=== PATIENT | male | born 1995 | race Caucasian/White ===

== ENCOUNTER 2018-08-11 20:04 | Emergency (ER) | payer SELFPAY ==
[2018-08-11] MEDS ORDERED: LIDOCAINE 1% INJ-PF (10 MG/ML) 30 ML SDV INJ ONE (22:22)
[2018-08-11] MEDS ORDERED: ONDANSETRON 4 MG TAB.RAPDIS PO ONE (22:22)
[2018-08-11] MEDS ORDERED: OXYCODONE-ACETAMINOPHEN 5-325 MG TABLET PO ONE (22:22)
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
[2018-08-11] MEDS ORDERED: TETRACAINE HCL 0.5% OPH SOLN 0.6 ML DROPERETTE OU ONE (23:12)
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
[2018-08-11] MEDS ORDERED: TETRACAINE HCL 0.5% OPH SOLN 4 ML ONE (23:29)
--- NOTE | 2018-08-11 23:53 | RADIOLOGY REPORT (SQ) ---
CLINICAL HISTORY: right eye injury painful eom COMPARISON: None. TECHNIQUE: CT MAXILLOFACIAL WITHOUT IV CONTRAST on 08/11/2018 11:12 PM CDT This exam was performed according to our departmental dose-optimization program, which includes automated exposure control, adjustment of the mA and/or kV according to patient size and/or use of iterative reconstruction technique. FINDINGS: There is no acute fracture. There is minimal thickening of the left maxillary sinus. Orbits and globes are unremarkable. Mastoid air cells are clear. Temporomandibular joints are intact. There is mild right infraorbital soft tissue swelling. There is soft tissue swelling overlying the right nasal bones. There may be a laceration within the soft tissues of the right nasal bone. IMPRESSION: Right facial soft tissue swelling without fracture or right globe injury.
[2018-08-12] MEDS ORDERED: HYDROCODONE/ACETAMINOPHEN 5-325 MG (6 TAB/ER DISP) PO PRN (01:00)
[2018-08-12 01:24] VITALS: BP 126/72
== END 2018-08-12 01:24 | disposition home or self-care (01) ==
LOC: ER 20:04
DX: S01.81XA Laceration without foreign body of other part of head, initial encounter (principal); S00.83XA Contusion of other part of head, initial encounter; H11.31 Conjunctival hemorrhage, right eye; W22.8XXA Striking against or struck by other objects, initial encounter; F17.210 Nicotine dependence, cigarettes, uncomplicated
CPT/HCPCS: 99283; 70486; 12013; S0119; J3490